=== PATIENT | female | born 2000 | race African-American/Black ===

== ENCOUNTER 2024-11-08 21:16 | Emergency (ER) | payer MEDICAID ==
[~2024-11-08] VITALS: Ht 152.4 cm; Wt 69.4 kg
[2024-11-08 22:05] VITALS: O2SAT 99
[2024-11-09 01:53] VITALS: BP 122/73; PULSE 74; RESP 17; TEMP 36.9; O2SAT 99
== END 2024-11-09 01:58 | disposition home or self-care (01) ==
LOC: ER 21:16
DX: U07.1 COVID-19 (principal); J45.909 Unspecified asthma, uncomplicated
CPT/HCPCS: 99282